=== PATIENT | male | born 1980 | race Caucasian/White ===

== ENCOUNTER 2017-02-17 16:25 | Inpatient (IN) | payer OTHER ==
[~2017-02-17] VITALS: Ht 167.6 cm; Wt 86.2 kg
--- NOTE | ~2017-02-17 | HC ---
[facility] [place] [address] CONSULTATION Name: RUPAL PEREIRA ALBERTO Room #: 406-P ADM IN M.R.#: [id number] Admission: 02/17/17 Attend Phys: Dariel Wiggins Discharge: Date of : 78 Report #: [id number] THIS REPORT FOR: //name// CC: REG[facility] physician/PCP Dariel Wiggins DATE OF SERVICE: 02/19/2017 WOUND CARE CONSULTATION PERSONAL PHYSICIAN: None on staff. CHIEF COMPLAINT: Right foot wound. HISTORY OF PRESENT ILLNESS: This is a 36-year-old male who speaks very little Yi and most of the questions were answered by his spouse. Supposedly, the patient approximately 2 weeks ago suffered a traumatic wound on his right foot after nearly falling on some stairs. The patient supposedly was able to catch himself and the only thing that landed hard was his right foot. The patient described what sounds like hematoma on the right great toe first metatarsal region. The patient attempted to use naproxen and ice, he had minimal relief. The patient then started noticed with increasing pain, redness and swelling, which prompted him to come to the Emergency Department to be evaluated. The patient is now status post I and D at the bedside by the orthopedic surgeons. I have been asked to assist in the care of the patient for the wound at this time. The patient is a diabetic; however, has never used insulin over the past several years because of lack of insurance. PAST MEDICAL HISTORY: Significant for diabetes mellitus, of which is once again not taking any medicines for, only using herbal and homeopathic medicines. DRUG ALLERGIES: None. CURRENT MEDICATIONS: Prior to hospitalization were none. FAMILY HISTORY: Not pertinent to current medical condition. SOCIAL HISTORY: The patient denies tobacco use or alcohol use. REVIEW OF SYSTEMS: CONSTITUTIONAL: The patient denies chills, but states he thinks he might have had a fever over the past couple of days prior to admission to the hospital, but denies sweats. EYES: No complaints. ENT: No complaints. NEUROLOGIC: The patient complains of overall generalized weakness, but no [facility] [address] [place] [address] CONSULTATION Name: RUPAL PEREIRA Room #: 406-P [facility] [place] ..#: [id number] Admission: 02/17/17 Attend Phys: Dariel Wiggins Discharge: Date of : 78 Report #: [id number] isolated weakness in arms or legs. CARDIAC: The patient denies chest pain, palpitations, but does have mild peripheral edema, which is in the right foot. RESPIRATORY: The patient denies shortness of breath, cough, wheezes. GASTROINTESTINAL: The patient denies nausea, vomiting or abdominal pain. GENITOURINARY: The patient denies urgency or frequency. MUSCULOSKELETAL: The patient has pain in his right foot and great toe region. SKIN: There is an open wound on the right medial great toe extending down to the first metatarsal head region. PHYSICAL EXAMINATION: VITAL SIGNS: Temperature 37, pulse 83, respirations 16, BP 132/76. GENERAL: This is an alert and oriented x 3, thin male who is in no obvious distress. HEENT: Normocephalic, atraumatic. Mucous membranes are dry. Pupils are round. Sclerae white. NECK: Supple, nontender. LUNGS: Clear. HEART: Regular without murmur. ABDOMEN: Soft, nontender, without organomegaly. EXTREMITIES: The patient moves all extremities without difficulty. The patient has 2+ dorsalis pedis and posterior tibial pulses bilaterally. On the right medial great toe is a surgical wound that is fairly clean and granulating. I do not see any obvious exposure of deep destruction such as bone or tendons. It is crossing tender to the touch and there is still some swelling noted. However, I cannot feel the actual fluctuance. There is minimal serosanguineous drainage, no further pus is noted. The surrounding tissues are slightly macerated. There does not appear to be any ascending cellulitis. Bilateral heels are intact. NEUROLOGIC: Cranial nerves 2-12 are grossly intact. Motor and sensory grossly intact. LABORATORY VALUES: White count 10.4, hemoglobin 11.2. Sed rate was 83. BUN 11, creatinine 0.7, glucose on admission was 278. Hemoglobin A1c was 12.3. C-reactive protein was 175. IMAGING DATA: CT scan of the foot showed no bony abnormalities or signs of bony destruction. IMPRESSION: 1. Traumatic wound to the right great toe and first metatarsal head region, now status post incision and drainage of what was most likely an infected hematoma. 2. Diabetes mellitus -- poorly controlled. 3. Generalized debility. PLAN: At this time, we will start silver alginate pack within the wound itself. Cover this with a foam gauze, had this dressing changed every 2 days. [facility] [address] [place] [address] CONSULTATION Name: RUPAL PEREIRA Room #: 406-P ADM IN M.R.#: [id number] Admission: 02/17/17 Attend Phys: Dariel Wiggins Discharge: Date of : 78 Report #: [id number] Antibiotics will be continued per the medical team. We will encourage the patient to maximize his protein supplementation for healing. We will continue to follow the patient. By: [id number] Naveed Flynn MD /amparo
[2017-02-17 16:26] VITALS: BP 139/80
[2017-02-17 17:34] LABS: ABSOLUTE NEUTROPHILS 13.5 thou/uL (1.4-8.2); BASOPHILS 0.2 % (0.0-2.0); EOSINOPHILS 0.4 % (0.0-3.0); HEMATOCRIT 38.3 % (42.0-52.0); HEMOGLOBIN 13.5 gm/dL (14.0-18.0); LYMPHOCYTES 10.3 % (24.0-44.0); MANUAL DIFF NO; MCH 31.1 pg (26.0-34.0); MCHC 35.2 g/dL (28.0-37.0); MCV 88.2 fL (80.0-100.0); MONOCYTES 11.1 % (1.0-8.0); PLATELET COUNT 420 thou/uL (150-400); RBC 4.34 mil/uL (4.50-6.00); WBC 17.3 thou/uL (4.0-11.0)
[2017-02-17 18:44] LABS: CALCIUM 9.6 mg/dL (8.5-10.1); CREATININE 0.7 mg/dL (0.7-1.3); POTASSIUM 4.2 mmol/L (3.5-5.1)
[2017-02-17 19:32] VITALS: BP 113/69
[2017-02-17 23:30] VITALS: BP 117/71
[2017-02-18 04:00] VITALS: BP 117/68
[2017-02-18 05:10] LABS: GLYCOHEMOGLOBIN (HGB A1C) 12.3 % (4.8-5.6)
[2017-02-18 06:04] LABS: HEMOGLOBIN 11.6 gm/dL (14.0-18.0); MCH 30.7 pg (26.0-34.0); MCHC 34.1 g/dL (28.0-37.0); MCV 90.1 fL (80.0-100.0); PLATELET COUNT 379 thou/uL (150-400); RBC 3.77 mil/uL (4.50-6.00); RDW 12.1 % (10.5-14.5); WBC 14.3 thou/uL (4.0-11.0)
[2017-02-18 06:23] LABS: MANUAL DIFF YES
[2017-02-18 07:52] LABS: ABSOLUTE NEUTROPHILS 10.9 thou/uL (1.4-8.2); TOTAL CELL COUNT 100
[2017-02-18 10:21] VITALS: BP 120/72
[2017-02-18 22:41] VITALS: BP 149/85
[2017-02-19 04:45] VITALS: BP 148/84
[2017-02-19 07:48] LABS: HEMATOCRIT 31.8 % (42.0-52.0); HEMOGLOBIN 11.2 gm/dL (14.0-18.0); MCH 31.4 pg (26.0-34.0); MCHC 35.1 g/dL (28.0-37.0); MCV 89.5 fL (80.0-100.0); PLATELET COUNT 348 thou/uL (150-400); RBC 3.55 mil/uL (4.50-6.00); RDW 12.1 % (10.5-14.5); WBC 10.4 thou/uL (4.0-11.0)
[2017-02-19 07:56] LABS: MANUAL DIFF YES
[2017-02-19 08:00] VITALS: BP 132/76
[2017-02-19 09:55] LABS: ABSOLUTE NEUTROPHILS 6.6 thou/uL (1.4-8.2); TOTAL CELL COUNT 100
[2017-02-19 16:07] VITALS: BP 136/86
[2017-02-19 20:00] VITALS: BP 129/82
[2017-02-20 04:00] VITALS: BP 120/80
[2017-02-20 08:00] VITALS: BP 139/94
[2017-02-20] MEDS ORDERED: AUGMENTIN 875-1 EACH PO (10:18)
[2017-02-20] MEDS ORDERED: ACETAMINOPHEN325 M1 PO (10:19)
[2017-02-20] MEDS ORDERED: GLYBURIDE 5 MG T5 M1 PO (10:19)
[2017-02-20 11:00] VITALS: BP 139/94
== END 2017-02-20 11:30 | disposition home or self-care (01) | DRG 638 ==
LOC: EDBD 16:25 → ER 16:25 → EROBS 18:31 → 4N 18:31
PROVIDERS: Hospitalist; Orthopaedic Surgery Sports Medicine; Physician Assistant
PROC: 0H9MXZZ Drainage of Right Foot Skin, External Approach (ICD-10-PCS; principal; 2017-02-17)
PROC: 3E0T3BZ Introduction of Anesthetic Agent into Peripheral Nerves and Plexi, Percutaneous Approach (ICD-10-PCS; principal; 2017-02-17)
DX: E11.628 Type 2 diabetes mellitus with other skin complications (principal); L03.115 Cellulitis of right lower limb; L02.611 Cutaneous abscess of right foot; E11.42 Type 2 diabetes mellitus with diabetic polyneuropathy; F17.210 Nicotine dependence, cigarettes, uncomplicated; B95.61 Methicillin susceptible Staphylococcus aureus infection as the cause of diseases classified elsewhere
CPT/HCPCS: 10091